=== PATIENT | male | born 1990 | race Two or more races ===

== ENCOUNTER 2017-09-09 20:44 | Emergency (ER) | payer SELFPAY ==
[2017-09-09] MEDS: IBUPROFEN 800 MG TABLET. PO (22:25)
== END 2017-09-09 22:39 | disposition home or self-care (01) ==
LOC: ER 20:44
DX: S23.3XXA Sprain of ligaments of thoracic spine, initial encounter (principal); J02.0 Streptococcal pharyngitis; X58.XXXA Exposure to other specified factors, initial encounter; Y93.89 Activity, other specified; Y92.69 Other specified industrial and construction area as the place of occurrence of the external cause; Y99.8 Other external cause status
CPT/HCPCS: 99283

== ENCOUNTER 2018-07-14 17:42 | Emergency (ER) | payer SELFPAY ==
[~2018-07-14] VITALS: Ht 175.3 cm; Wt 102.1 kg
[~2018-07-14 17:42] MED LIST: AMOX875T PO; CYCL5TAB PO; IBUP-1060 PO
[2018-07-14 18:09] VITALS: BP 129/68
[2018-07-14] MEDS ORDERED: BENZ100C PO (18:59)
--- NOTE | 2018-07-14 18:59 | PHYS DOC ---
Past Medical History Past Medical History: No Pertinent History Past Surgical History: No Surgical History Alcohol Use: Occasionally Drug Use: None Adult General Chief Complaint Chief Complaint: SORE THROAT HPI HPI Patient is a 28 year old male who presents to the ER with complaints of a sore throat, dry cough, and congestion for the last 3 days. PT denies any fever, rash , ear pain, difficulty swallowing, nausea, vomiting, or diarrhea. He states that he is a smoker but denies any other health problems. HE states that the cough is mostly dry but in the mornings he does cough up some clear to yellow phlegm, he denies any wheezing or shortness of breath. Review of Systems Review of Systems Constitutional: Denies fever or chills [] Eyes: Denies change in visual acuity, redness, or eye pain [] HENT: see HPI Respiratory: Denies wheezing or shortness of breath, reports cough x3 days GI: Denies abdominal pain, nausea, vomiting, bloody stools or diarrhea [] Musculoskeletal: Denies back pain or joint pain [] Integument: Denies rash or skin lesions [] Neurologic: Denies headache, focal weakness or sensory changes [] All other systems were reviewed and found to be within normal limits, except as documented in this note. Allergies Allergies Allergies Coded Allergies Type Severity Reaction Last Updated Verified No Known Drug Allergies 09/09/17 No Physical Exam Physical Exam Constitutional: Well developed, well nourished, no acute distress, non-toxic appearance. [] HENT: Normocephalic, atraumatic, bilateral external ears normal, bilateral TMs normal, 2+ tonsils bilat without exudate or erythema, oropharynx moist, no oral exudates, nose normal. [] Eyes: PERRLA, conjunctiva normal, no discharge. [] Neck: Normal range of motion, no tenderness, supple, no stridor. [] Cardiovascular:Heart rate regular rhythm, no murmur [] Lungs & Thorax: Bilateral breath sounds clear to auscultation [] Skin: Warm, dry, no erythema, no rash. [] Neurologic: Alert and oriented X 3, normal motor function, normal sensory function, no focal deficits noted. [] Psychologic: Affect normal, judgement normal, mood normal. [] Current Patient Data Vital Signs Vital Signs Date Time Temp Pulse Resp B/P (MAP) Pulse Ox O2 Delivery O2 Flow Rate FiO2 11/14/18 18:09 98.3 69 16 129/68 (88) 98 Room Air 98.3 EKG EKG [] Radiology/Procedures Radiology/Procedures [] Course & Med Decision Making Course & Med Decision Making Pertinent Labs and Imaging studies reviewed. (See chart for details) Dx: URI, Pharyngitis Rx for tessalon perrles, increase clear fluids, avoid airway irritants. Follow up with PCP in 1-2 days, return to ER if sx worsen. Patient verbalized an understanding of home care, medications, follow-up, and return to ED instructions and was in agreement with the plan of care. [] Dragon Disclaimer Dragon Disclaimer This electronic medical record was generated, in whole or in part, using a voice recognition dictation system. Departure Departure Impression: Primary Impression: URI (upper respiratory infection) Additional Impression: Pharyngitis, acute Disposition: HOME, SELF-CARE Condition: STABLE Referrals: NO PCP (PCP) Patient Instructions: Upper Respiratory Infection, Adult, [id number], Viral and Bacterial Pharyngitis, [id number] Additional Instructions: Warm saltwater gargles as needed for pain relief. Tylenol or ibuprofen as needed for pain/fever. Increase clear fluid intake. Avoid exposure to airway irritants such as smoke, perfumes, dust, and animal dander. Follow-up with your primary care doctor in 1-2 days. Return to the emergency room if your symptoms worsen. Scripts Benzonatate (TESSALON PERLE) 100 Mg Capsule 1 CAP PO TID PRN for COUGH, #21 CAP 0 Refills Prov: JUSTIN [employer] 07/14/18 Problem Qualifiers Primary Impression: URI (upper respiratory infection) URI type: unspecified URI Qualified Codes: J06.9 - Acute upper respiratory infection, unspecified Additional Impression: Pharyngitis, acute Pharyngitis/tonsillitis etiology: unspecified etiology Qualified Codes: J02.9 - Acute pharyngitis, unspecified JUSTIN [employer] Jul 14, 2018 18:59
== END 2018-07-14 19:08 | disposition home or self-care (01) ==
LOC: ER 17:42
DX: J02.9 Acute pharyngitis, unspecified (principal); F17.200 Nicotine dependence, unspecified, uncomplicated
CPT/HCPCS: 87070; 87880; 99283